=== PATIENT | male | born 1955 | race Caucasian/White ===

== ENCOUNTER 2020-04-17 09:21 | Observation (INO) | payer BC ==
--- NOTE | 2020-04-17 10:20 | EDM.PDOC ---
ED HPI GENERAL MEDICAL PROBLEM - General Chief Complaint: Abdominal Pain Stated Complaint: MEDICAL Time Seen by Provider: 04/17/20 10:19 Source of Information: Reports: Patient History Limitations: Reports: No Limitations - History of Present Illness INITIAL COMMENTS - FREE TEXT/NARRATIVE: pt arrived with a 3 day history of upper abdomanal pain radiating into the chest. He has not vomited. He is having stools. Onset: Gradual, Other ( sick for 3-4 days. ) Duration: Day(s): Location: Reports: Abdomen Associated Symptoms: Reports: Loss of Appetite, Weakness Upper Epigastric Pain Score (Numeric/FACES): 4 - Related Data Allergies Allergy/AdvReac Type Severity Reaction Status Date / Time No Known Allergies Allergy Verified 04/17/20 09:58 Home Meds: Home Meds NK [No Known Home Meds] 04/17/20 [History] Past Medical History - Past Health History Medical/Surgical History: Denies Medical/Surgical History Social & Family History - Tobacco Use Tobacco Use Status *Q: Heavy Tobacco User Years of Tobacco use: 40 Packs/Tins Daily: 1.5 - Caffeine Use Caffeine Use: Reports: Coffee - Recreational Drug Use Recreational Drug Use: No ED ROS GENERAL - Review of Systems Review Of Systems: See Below Constitutional: Reports: Fatigue, Decreased Appetite HEENT: Reports: No Symptoms Respiratory: Reports: No Symptoms Cardiovascular: Reports: No Symptoms Endocrine: Reports: No Symptoms GI/Abdominal: Reports: Abdominal Pain, Decreased Appetite : Reports: No Symptoms Musculoskeletal: Reports: No Symptoms Skin: Reports: No Symptoms ED EXAM, GI/ABD - Physical Exam Exam: See Below Text/Narrative:: pt arrived with rt upper abdomanal pain. He has not felt like eating for several days. He is rating his pain at a 4. Exam Limited By: No Limitations General Appearance: Alert, Moderate Distress Ears: Normal TMs Nose: Normal Inspection Throat/Mouth: Normal Inspection Head: Atraumatic Neck: Normal Inspection Respiratory/Chest: No Respiratory Distress Cardiovascular: Regular Rate, Rhythm GI/Abdominal Exam: Tender, Other (pt is tender with mild guarding in the rt upper abdoman. ) (Male) Exam: Deferred Rectal (Males) Exam: Deferred Back Exam: Normal Inspection Extremities: Normal Inspection Neurological: Alert, Oriented, Normal Cognition Psychiatric: Anxious Course - Vital Signs Last Recorded V/S: Last Vital Signs Temp 36.6 C 04/17/20 09:57 Pulse 90 04/17/20 09:57 Resp 16 04/17/20 09:57 BP 128/70 04/17/20 09:57 Pulse Ox 97 04/17/20 09:57 - Orders/Labs/Meds Orders: Active Orders 24 hr Category Date Time Status Abdomen Ltd [US] Stat Exams 04/17/20 10:17 Taken UA W/MICROSCOPIC [URIN] Urgent Lab 04/17/20 10:11 Ordered HYDROmorphone [Dilaudid] Med 04/17/20 11:31 Once 0.5 mg IVPUSH ONETIME ONE Ondansetron [Zofran] Med 04/17/20 11:31 Once 4 mg IVPUSH ONETIME ONE Sodium Chloride 0.9% [Normal Saline] 1,000 ml Med 04/17/20 11:30 Ordered IV ASDIRECTED Medication Orders Sodium Chloride (Normal Saline) 1,000 mls @ 999 mls/hr IV ASDIRECTED TOSHIA Ondansetron HCl (Ondansetron 4 Mg/2 Ml Sdv) 4 mg IVPUSH ONETIME ONE Stop: 04/17/20 11:32 Labs: Laboratory Tests 04/17/20 04/17/20 04/17/20 Range/Units 10:19 10:19 10:19 WBC 17.8 H (4.5-11.0) K/uL RBC 5.04 (4.30-5.90) M/uL Hgb 15.3 H (12.0-15.0) g/dL Hct 47.4 (40.0-54.0) % MCV 94 (80-98) fL MCH 30 (27-31) pg MCHC 32 (32-36) % Plt Count 214 (150-400) K/uL Neut % (Auto) 78 H (36-66) % Lymph % (Auto) 12 L (24-44) % [place] % (Auto) 10 H (2-6) % Eos % (Auto) 0 L (2-4) % Baso % (Auto) 0 (0-1) % Sodium 139 L (140-148) mmol/L Potassium 4.3 (3.6-5.2) mmol/L Chloride 101 (100-108) mmol/L Carbon Dioxide 31 (21-32) mmol/L Anion Gap 11.3 (5.0-14.0) mmol/L BUN 15 (7-18) mg/dL Creatinine 1.1 (0.8-1.3) mg/dL Est Cr Clr Drug Dosing 76.42 mL/min Estimated GFR (MDRD) > 60 (>60) Glucose 134 H (74-106) mg/dL Calcium 8.8 (8.5-10.1) mg/dL Total Bilirubin 0.5 (0.2-1.0) mg/dL AST 266 H (15-37) U/L ALT 126 H (12-78) U/L Alkaline Phosphatase 62 (46-116) U/L Total Protein 6.5 (6.4-8.2) g/dL Albumin 3.4 (3.4-5.0) g/dL Globulin 3.1 (2.3-3.5) g/dL Albumin/Globulin Ratio 1.1 L (1.2-2.2) Amylase 54 (25-115) U/L Lipase 93 (73-393) U/L Meds: Medications Generic Name Dose Route Start Last Admin Trade Name Freq PRN Reason Stop Dose Admin Sodium Chloride 1,000 mls @ 999 mls/hr 04/17/20 11:30 Normal Saline IV ASDIRECTED TOSHIA Ondansetron HCl 4 mg 04/17/20 11:31 Ondansetron 4 Mg/2 Ml Sdv IVPUSH 04/17/20 11:32 ONETIME ONE - Re-Assessments/Exams Free Text/Narrative Re-Assessment/Exam: 04/17/20 11:03 pt has normal pancreatic enzymes, liver enzymes are elevated. Us limited abdoman shows a large GB with alot of stones, thickend wall possibly some fluid in the wall. Will have Dr Kelly consult on the pt. Departure - Departure Time of Disposition: 11:31 Disposition: Admitted As Inpatient 68 Condition: Fair Clinical Impression: Cholecystitis - Discharge Information Referrals: PCP,None [Primary Care Provider] - Forms: ED Department Discharge Care Plan Goals: admit to Dr Mitchell Sepsis Event Note (ED) - Evaluation Sepsis Screening Result: No Definite Risk - Focused Exam Vital Signs: Vital Signs Temp Pulse Resp BP Pulse Ox 04/17/20 09:57 36.6 C 90 16 128/70 97 04/17/20 09:52 36.6 C 90 16 128/70 97 - My Orders Last 24 Hours: My Active Orders 04/17/20 10:11 UA W/MICROSCOPIC [URIN] Urgent 04/17/20 10:17 Abdomen Ltd [US] Stat 04/17/20 11:30 Sodium Chloride 0.9% [Normal Saline] 1,000 ml IV ASDIRECTED 04/17/20 11:31 HYDROmorphone [Dilaudid] 0.5 mg IVPUSH ONETIME ONE Ondansetron [Zofran] 4 mg IVPUSH ONETIME ONE - Assessment/Plan Last 24 Hours: My Active Orders 04/17/20 10:11 UA W/MICROSCOPIC [URIN] Urgent 04/17/20 10:17 Abdomen Ltd [US] Stat 04/17/20 11:30 Sodium Chloride 0.9% [Normal Saline] 1,000 ml IV ASDIRECTED 04/17/20 11:31 HYDROmorphone [Dilaudid] 0.5 mg IVPUSH ONETIME ONE Ondansetron [Zofran] 4 mg IVPUSH ONETIME ONE
[2020-04-17] MEDS ORDERED: Sodium Chloride 0.9% 1,000 ML IV SCH (11:30)
[2020-04-17] MEDS ORDERED: Ondansetron 4 MG/2 ML SDV IVPUSH ONE (11:31)
[2020-04-17] MEDS ORDERED: HYDROmorphone 0.5 MG/0.5 ML Syringe IVPUSH ONE (11:31)
[2020-04-17] MEDS ORDERED: Sodium Chloride 0.9% 10 ML Syringe FLUSH PRN (12:04)
[2020-04-17] MEDS ORDERED: Acetaminophen 325 MG Tab PO PRN (12:04)
[2020-04-17] MEDS ORDERED: Ondansetron 4 MG/2 ML SDV IV PRN (12:04)
[2020-04-17] MEDS ORDERED: HYDROmorphone 1 MG/ML Syringe IVPUSH PRN (12:10)
[2020-04-17] MEDS ORDERED: HYDROmorphone 0.5 MG/0.5 ML Syringe IVPUSH PRN (12:10)
[2020-04-17] MEDS ORDERED: Lactated Ringers 1,000 ML IV SCH (12:15)
--- NOTE | 2020-04-17 12:18 | PCM.HP.2 ---
H&P History of Present Illness - General Date of Service: 04/17/20 Admit Problem/Dx: Admission Diagnosis/Problem Admission Diagnosis/Problem Cholecystitis Source of Information: Patient History Limitations: Reports: No Limitations - History of Present Illness Symptom Onset Date: 04/15/20 Duration of Symptoms: Reports: Day(s):, Getting Worse Location: Reports: Abdomen Quality: Reports: Sharp Severity: Moderate Improves with: Reports: Medication Worsens with: Reports: Eating Associated Symptoms: Reports: No Other Symptoms Upper Epigastric Pain Score (Numeric/FACES): 4 - Related Data Allergies/Adverse Reactions: Allergies Allergy/AdvReac Type Severity Reaction Status Date / Time No Known Allergies Allergy Verified 04/17/20 09:58 Home Medications: Home Meds NK [No Known Home Meds] 04/17/20 [History] Past Medical History - Past Health History Medical/Surgical History: Denies Medical/Surgical History Social & Family History - Tobacco Use Tobacco Use Status *Q: Heavy Tobacco User Years of Tobacco use: 40 Packs/Tins Daily: 1.5 - Caffeine Use Caffeine Use: Reports: Coffee - Recreational Drug Use Recreational Drug Use: No H&P Review of Systems - Review of Systems: Review Of Systems: See Below General: Reports: Chills, Decreased Appetite HEENT: Reports: No Symptoms Pulmonary: Reports: No Symptoms Cardiovascular: Reports: No Symptoms Gastrointestinal: Reports: Abdominal Pain, Nausea, Vomiting. Denies: Black Stool, Bloody Stool Genitourinary: Reports: No Symptoms Musculoskeletal: Reports: No Symptoms Skin: Reports: No Symptoms Psychiatric: Reports: No Symptoms Neurological: Reports: No Symptoms Hematologic/Lymphatic: Reports: No Symptoms Immunologic: Reports: No Symptoms Exam - Exam Exam: See Below - Vital Signs Vital Signs: Last Vital Signs Temp 97.8 F 04/17/20 09:57 Pulse 64 04/17/20 11:59 Resp 16 04/17/20 11:59 BP 111/65 04/17/20 11:59 Pulse Ox 97 04/17/20 09:57 Weight: 208 lb - Exam General: Alert, Oriented, Cooperative HEENT: Conjunctiva Clear, Hearing Intact Neck: Supple, Trachea Midline Lungs: Clear to Auscultation Cardiovascular: Regular Rate GI/Abdominal Exam: Soft, Tender Extremities: Normal Inspection Neuro Extensive - Mental Status: Alert, Oriented x3, Normal Mood/Affect Psychiatric: Alert, Normal Affect, Normal Mood - Patient Data Lab Results Last 24 hrs: Laboratory Results - last 24 hr 04/17/20 04/17/20 04/17/20 Range/Units 10: 10: 10: WBC 17.8 H (4.5-11.0) K/uL RBC 5.04 (4.30-5.90) M/uL Hgb 15.3 H (12.0-15.0) g/dL Hct 47.4 (40.0-54.0) % MCV 94 (80-98) fL MCH 30 (27-31) pg MCHC 32 (32-36) % Plt Count 214 (150-400) K/uL Neut % (Auto) 78 H (36-66) % Lymph % (Auto) 12 L (24-44) % [place] % (Auto) 10 H (2-6) % Eos % (Auto) 0 L (2-4) % Baso % (Auto) 0 (0-1) % Sodium 139 L (140-148) mmol/L Potassium 4.3 (3.6-5.2) mmol/L Chloride 101 (100-108) mmol/L Carbon Dioxide 31 (21-32) mmol/L Anion Gap 11.3 (5.0-14.0) mmol/L BUN 15 (7-18) mg/dL Creatinine 1.1 (0.8-1.3) mg/dL Est Cr Clr Drug Dosing 76.42 mL/min Estimated GFR (MDRD) > 60 (>60) Glucose 134 H (74-106) mg/dL Calcium 8.8 (8.5-10.1) mg/dL Total Bilirubin 0.5 (0.2-1.0) mg/dL AST 266 H (15-37) U/L ALT 126 H (12-78) U/L Alkaline Phosphatase 62 (46-116) U/L Total Protein 6.5 (6.4-8.2) g/dL Albumin 3.4 (3.4-5.0) g/dL Globulin 3.1 (2.3-3.5) g/dL Albumin/Globulin Ratio 1.1 L (1.2-2.2) Amylase 54 (25-115) U/L Lipase 93 (73-393) U/L Result Diagrams: 04/17/20 10:19 04/17/20 10:19 Sepsis Event Note - Evaluation Sepsis Screening Result: No Definite Risk - Focused Exam Vital Signs: Vital Signs Temp Pulse Resp BP Pulse Ox 04/17/20 11:59 64 16 111/65 04/17/20 09:57 97.8 F 90 16 128/70 97 04/17/20 09:52 97.8 F 90 16 128/70 97 Problem List Initiated/Reviewed/Updated: Yes Orders Last 24hrs: Active Orders 24 hr Category Date Time Status Patient Status [ADT] Routine ADT 04/17/20 12:04 Ordered Bedrest Bathroom Privileges [RC] ASDIRECTED Care 04/17/20 12:04 Ordered Height and Weight [RC] DAILY Care 04/17/20 12:04 Ordered Intake and Output [RC] QSHIFT Care 04/17/20 12:06 Ordered Notify Provider Consults [RC] ASDIRECTED Care 04/17/20 12:08 Ordered Oxygen Therapy [RC] PRN Care 04/17/20 12:04 Ordered Peripheral IV Care [RC] . DIRECTED Care 04/17/20 12:07 Ordered VTE/DVT Education [RC] Per Unit Routine Care 04/17/20 12:04 Ordered Vital Signs [RC] Q4H Care 04/17/20 12:04 Ordered Consult to Physician [CONS] Routine Cons 04/17/20 12:04 Ordered Clear Liquid Diet [DIET] Diet 04/17/20 Dinner Ordered Nothing per Oral After Midnight Diet [DIET] Diet 04/17/20 Dinner Ordered Abdomen Ltd [US] Stat Exams 04/17/20 10:17 Taken BASIC METABOLIC PANEL,BMP [CHEM] AM Lab 04/18/20 05:11 Ordered CBC WITH AUTO DIFF [HEME] AM Lab 04/18/20 05:11 Ordered HEPATIC FUNCTION PANEL,HFP [CHEM] Stat Lab 04/18/20 06:00 Ordered UA W/MICROSCOPIC [URIN] Urgent Lab 04/17/20 12:03 Ordered Acetaminophen [TylenoL] Med 04/17/20 12:04 Ordered 650 mg PO Q4H PRN HYDROmorphone [Dilaudid] Med 04/17/20 12:10 Ordered 0.5 mg IVPUSH Q2H PRN HYDROmorphone [Dilaudid] Med 04/17/20 12:10 Ordered 1 mg IVPUSH Q2H PRN Lactated Ringers [Ringers, Lactated] 1,000 ml Med 04/17/20 12:15 Ordered IV ASDIRECTED Ondansetron [Zofran] Med 04/17/20 12:04 Ordered 4 mg IV Q4H PRN Sodium Chloride 0.9% [Normal Saline] 1,000 ml Med 04/17/20 11:30 Active IV ASDIRECTED Sodium Chloride 0.9% [Saline Flush] Med 04/17/20 12:04 Ordered 10 ml FLUSH ASDIRECTED PRN cefTRIAXone [Rocephin] 1 gm Med 04/17/20 13:00 Ordered Sodium Chloride 0.9% [Normal Saline] 50 ml IV Q24H Peripheral IV Insertion Adult [OM.PC] Routine Oth 04/17/20 12:04 Ordered Sequential Compression Device [OM.PC] Per Unit Routine Oth 04/17/20 12:06 Ordered Resuscitation Status Routine Resus Stat 04/17/20 12:04 Ordered Medication Orders Acetaminophen (Acetaminophen 325 Mg Tab) 650 mg PO Q4H PRN PRN Reason: Pain (Mild 1-3)/fever Hydromorphone HCl (Hydromorphone 0.5 Mg/0.5 Ml Syringe) 0.5 mg IVPUSH Q2H PRN PRN Reason: Pain (moderate 4-6) Hydromorphone HCl (Hydromorphone 1 Mg/Ml Syringe) 1 mg IVPUSH Q2H PRN PRN Reason: Pain (severe 7-10) Sodium Chloride (Normal Saline) 1,000 mls @ 999 mls/hr IV ASDIRECTED [facility] Lactated Ringer's (Ringers, Lactated) 1,000 mls @ 75 mls/hr IV ASDIRECTED TOSHIA Ceftriaxone Sodium 1 gm/ (Sodium Chloride) 50 mls @ 100 mls/hr IV Q24H [facility] Ondansetron HCl (Ondansetron 4 Mg/2 Ml Sdv) 4 mg IV Q4H PRN PRN Reason: Nausea/Vomiting Sodium Chloride (Sodium Chloride 0.9% 10 Ml Syringe) 10 ml FLUSH ASDIRECTED PRN PRN Reason: Keep Vein Open Assessment/Plan Comment:: ACUTE CHOLECYSTITIS Case discussed with Dr. Kelly in the emergency department. He request hospitalist admission with tentative plan for surgery in a.m. We will focus on pain control and IV hydration today. Patient requests sips and ice chips as tolerated. We will allow this until midnight when the patient will be made NPO. -----Requested a dose of Rocephin and will continue daily until surgery. NICOTINE DEPENDENCE Patient smokes 2 packs/day. Requested nicotine patch with nicotine gum as needed for cravings DVT PROPHYLAXIS Requested SCDs with planned surgery tomorrow DISPOSITION Patient admitted under observation. Projected hospitalization is 1 to 2 days with target disposition home.
[2020-04-17] MEDS ORDERED: cefTRIAXone 1 GM in Sodium Chloride 0.9% 50 ML IV SCH ×2 (13:00)
--- NOTE | 2020-04-17 13:11 | US ---
Abdomen Ltd CLINICAL HISTORY: Abdominal pain COMPARISON: None. TECHNIQUE: Real-time images were obtained through the right upper quadrant. FINDINGS: The liver is free of mass or biliary dilatation. There is some increased hepatic echogenicity. There is some fatty sparing in the gallbladder fossa The gallbladder contains echoes with dense shadowing. Gallbladder wall measures 4 mm. There is a positive Downing sign. The common bile duct measures 5 mm. The pancreas is partially obscured. No mass is seen The right kidney has a normal appearance. The IVC is normal. IMPRESSION: Cholelithiasis with gallbladder wall thickening and a positive Downing's sign consistent with cholelithiasis with cholecystitis Fatty infiltration of the liver
[2020-04-17 13:37] LABS: CORONAVIRUS COVID-19 NAA NEGATIVE (NEGATIVE)
[2020-04-17] MEDS ORDERED: Nicotine Polacrilex 2 MG Gum CHEW PRN (14:05)
[2020-04-17] MEDS ORDERED: HYDROmorphone 1 MG/ML Syringe IV PRN (14:23)
[2020-04-17] MEDS ORDERED: Dextrose 5%-Lactated Ringers 1,000 ML IV SCH (14:30)
[2020-04-17] MEDS ORDERED: Pantoprazole 40 MG Vial IV SCH (15:00)
[2020-04-17] MEDS: Nicotine 21 MG/24 Hr Patch TRDERM SCH (16:14)
[2020-04-17] MEDS: Ampicillin/Sulbactam Na 3 GM in Sodium Chloride 0.9% 100 ML IV SCH ×2 (16:19→22:39)
[2020-04-18] MEDS: Ampicillin/Sulbactam Na 3 GM in Sodium Chloride 0.9% 100 ML IV SCH ×2 (04:03→11:26)
[2020-04-18] MEDS ORDERED: Lidocaine 1% with EPINEPHrine 1:100,000 50 ML MDV ONE (06:53)
[2020-04-18] MEDS ORDERED: Bupivacaine 0.5% 50 ML MDV ONE (06:53)
[2020-04-18] MEDS ORDERED: fentaNYL 250 MCG/5 ML SDV ONE (07:56)
[2020-04-18] MEDS ORDERED: Propofol 200 MG/20 ML SDV ONE (07:57)
[2020-04-18] MEDS ORDERED: Rocuronium 50 MG/5 ML Vial ONE (07:57)
[2020-04-18] MEDS ORDERED: Dexamethasone 4 MG/ML SDV ONE (07:57)
[2020-04-18] MEDS ORDERED: Neostigmine Methylsulfate 1 MG/ML 5 ML Syringe ONE (07:57)
[2020-04-18] MEDS ORDERED: Glycopyrrolate 0.2 MG/ML 5 ML MDV ONE (07:57)
[2020-04-18] MEDS ORDERED: Ondansetron 4 MG/2 ML SDV ONE (07:57)
[2020-04-18] MEDS ORDERED: Succinylcholine 200 MG/10 ML MDV ONE (07:57)
[2020-04-18] MEDS ORDERED: Ketamine 500 MG/5 ML MDV IV SCH (08:30)
[2020-04-18] MEDS ORDERED: Ketamine 50 MG in Sodium Chloride 0.9% 49.5 ML IV SCH (08:30)
[2020-04-18] MEDS: Nicotine 21 MG/24 Hr Patch TRDERM SCH (09:44)
--- NOTE | 2020-04-18 10:26 | PN ---
DATE OF SERVICE: 04/18/2020 SUBJECTIVE: Jimmy is n.p.o. He will be having a laparoscopic cholecystectomy case to follow today. He has had no pain until earlier this morning and then developed some right upper quadrant pain associated with nausea. REVIEW OF SYSTEMS: Remainder of review of systems negative for any pertinent positives and negatives. OBJECTIVE: GENERAL: Jimmy Yo is a pleasant 64-year-old male. He is alert and orientated. VITAL SIGNS: TPR is 96.4, 44, 18, blood pressure 106/44. HEENT: Negative. NECK: Supple. HEART: Regular rate and rhythm. LUNGS: Clear. ABDOMEN: Slightly distended. There is tenderness in the right upper quadrant. EXTREMITIES: Without peripheral edema. NEUROLOGIC: Intact. PSYCHIATRIC: Mood and affect appropriate. ASSESSMENT: Cholecystitis. PLAN: After preoperative evaluation and discussion of possible risks and possible complications, the patient wishes to proceed with surgical procedure. Orders will be written postoperatively. Kat Spicer PA-C /[id number]
[2020-04-18] MEDS ORDERED: Heparin Sodium 5,000 Units/ML Vial IVPUSH ONE (10:29)
[2020-04-18] MEDS ORDERED: Heparin Sodium/D5W 25,000 UNITS/500 ML BAG IV SCH (10:30)
[2020-04-18] MEDS ORDERED: Aspirin 81 MG Tab.Chew PO ONE (10:45)
[2020-04-18] MEDS ORDERED: Clopidogrel 75 MG Tab PO ONE (11:10)
--- NOTE | 2020-04-18 11:12 | PCM.DCSUM1 ---
Discharge Summary - Hospital Course Brief History: 64-year-old male with history of tobacco dependence who presented with 3 days of epigastric abdominal pain. He was admitted for management of acute cholecystitis with cholelithiasis. Diagnosis: Stroke: No - Discharge Data Discharge Date: 04/18/20 Discharge Disposition: DC/Tfer to Acute Hospital 02 Condition: Stable - Referral to Home Health Primary Care Physician: PCP None - Discharge Diagnosis/Problem(s) (1) NSTEMI (non-ST elevated myocardial infarction) SNOMED Code(s): 17577827 ICD Code: I21.4 - NON-ST ELEVATION (NSTEMI) MYOCARDIAL INFARCTION Status: Acute Current Visit: Yes (2) Complete heart block SNOMED Code(s): 76531850 ICD Code: I44.2 - ATRIOVENTRICULAR BLOCK, COMPLETE Status: Acute Current Visit: Yes (3) Acute cholecystitis due to biliary calculus SNOMED Code(s): 93837710384250 ICD Code: K80.00 - CALCULUS OF GALLBLADDER W ACUTE CHOLECYST W/O OBSTRUCTION Status: Acute Current Visit: Yes (4) Tobacco dependence SNOMED Code(s): 35345766 ICD Code: F17.200 - NICOTINE DEPENDENCE, UNSPECIFIED, UNCOMPLICATED Status: Chronic Current Visit: Yes - Patient Summary/Data Consults: Consultations 04/17/20 12:04 Consult to Physician [CONS] Routine Consulting Provider: Rui Kelly Call Completed to Consulting Physician: Yes Date Notified: 04/17/20 Hospital Course: Capo presented to the emergency room with 3 days of epigastric abdominal pain that radiated to his chest. Laboratory work-up in the emergency room revealed mild elevation of AST and ALT. He also had leukocytosis with a white blood cell count of 17,000. A right upper quadrant ultrasound revealed thickening of the gallbladder wall as well as cholelithiasis concerning for acute cholecystitis with gallstones. He was started on Unasyn and aztreonam. The surgical team was consulted and he was admitted to the hospital with the plan for surgical intervention the next morning. Overnight there were no issues. He has been pain-free. This morning he went down to the operating room and prior to receiving any anesthesia his heart rate suddenly dropped to the mid 30s. This appeared to be complete heart block on the monitor. An EKG was obtained and did confirm complete heart block. I checked a troponin level off of his morning blood and this was elevated at 28. The patient received 324 mg of aspirin as well as a 4000 unit heparin bolus and heparin infusion was started. There was concern for non-ST elevation myocardial infarction. I talked to the cardiology team at [facility] in [place]. The risk concerned that this should be treated as a STEMI. 600 mg of clopidogrel was also requested. The plan is for the patient to be transferred emergently to [facility] in [place] with a direct admission to the [facility]. He is stable for transfer at this time and the risks far outweigh the benefits. - Patient Instructions Diet: NPO Activity: Bedrest Other/Special Instructions: transfer to [facility]. Dx: NSTEMI, acute cholecystitis. Discussed with Dr Thomas - cardiology - Discharge Plan *PRESCRIPTION DRUG MONITORING PROGRAM REVIEWED*: Not Applicable *COPY OF PRESCRIPTION DRUG MONITORING REPORT IN PATIENT DALY: Not Applicable Home Medications: Home Meds NK [No Known Home Meds] 04/17/20 [History] Referrals: PCP,None [Primary Care Provider] - - Discharge Summary/Plan Comment DC Time >30 min.: Yes (60-transfer to acute hospital ) - Patient Data Vitals - Most Recent: Last Vital Signs Temp 36.8 C 04/18/20 10:10 Pulse 35 L 04/18/20 10:10 Resp 18 04/18/20 10:10 BP 104/49 L 04/18/20 10:10 Pulse Ox 93 L 04/18/20 10:10 Weight - Most Recent: 94.347 kg I&O - Last 24 hours: Intake & Output 04/17/20 04/18/20 04/18/20 22:59 06:59 14:59 Intake Total 1083 957 Balance 1083 957 Lab Results - Last 24 hrs: Laboratory Results - last 24 hr 04/17/20 04/17/20 04/18/20 Range/Units 12:03 12:48 03:57 WBC (4.5-11.0) K/uL RBC (4.30-5.90) M/uL Hgb (12.0-15.0) g/dL Hct (40.0-54.0) % MCV (80-98) fL MCH (27-31) pg MCHC (32-36) % Plt Count (150-400) K/uL Neut % (Auto) (36-66) % Lymph % (Auto) (24-44) % Catron % (Auto) (2-6) % Eos % (Auto) (2-4) % Baso % (Auto) (0-1) % Sodium (140-148) mmol/L Potassium (3.6-5.2) mmol/L Chloride (100-108) mmol/L Carbon Dioxide (21-32) mmol/L Anion Gap (5.0-14.0) mmol/L BUN (7-18) mg/dL Creatinine (0.8-1.3) mg/dL Est Cr Clr Drug Dosing mL/min Estimated GFR (MDRD) (>60) Glucose (74-106) mg/dL Calcium (8.5-10.1) mg/dL Total Bilirubin 0.7 (0.2-1.0) mg/dL Direct Bilirubin 0.32 H (0.0-0.2) mg/dL Indirect Bilirubin 0.38 AST 205 H (15-37) U/L ALT 147 H (12-78) U/L Alkaline Phosphatase 66 (46-116) U/L Troponin I (0.000-0.056) ng/mL Total Protein 5.6 L (6.4-8.2) g/dL Albumin 2.8 L (3.4-5.0) g/dL Globulin 2.8 (2.3-3.5) g/dL Albumin/Globulin Ratio 1.0 L (1.2-2.2) Urine Color Yellow (YELLOW) Urine Appearance Slightly cloudy A (CLEAR) Urine pH 6.0 (5.0-8.0) Ur Specific Tyler 1.025 (1.008-1.030) Urine Protein 100 H (NEGATIVE) mg/dL Urine Glucose (UA) Negative (NEGATIVE) mg/dL Urine Ketones Trace H (NEGATIVE) mg/dL Urine Occult Blood Negative (NEGATIVE) Urine Nitrite Negative (NEGATIVE) Urine Bilirubin Negative (NEGATIVE) Urine Urobilinogen 0.2 (0.2-1.0) EU/dL Ur Leukocyte Esterase Negative (NEGATIVE) Urine RBC 0-5 (0-5) Urine WBC 0-5 (0-5) Ur Epithelial Cells Not seen Amorphous Sediment Moderate Urine Bacteria Rare Urine Mucus Moderate Urine Other See note Influenza Type A RNA Negative (NEGATIVE) RSV RNA (INAAT) Negative (NEGATIVE) Influenza Type B RNA Negative (NEGATIVE) SARS-CoV-2 RNA (GALOL) Negative (NEGATIVE) 04/18/20 04/18/20 04/18/20 Range/Units 03:57 03:57 09:44 WBC 16.0 H (4.5-11.0) K/uL RBC 4.97 (4.30-5.90) M/uL Hgb 15.3 H (12.0-15.0) g/dL Hct 47.7 (40.0-54.0) % MCV 96 (80-98) fL MCH 31 (27-31) pg MCHC 32 (32-36) % Plt Count 204 (150-400) K/uL Neut % (Auto) 68 H (36-66) % Lymph % (Auto) 19 L (24-44) % Catron % (Auto) 14 H (2-6) % Eos % (Auto) 0 L (2-4) % Baso % (Auto) 0 (0-1) % Sodium 140 (140-148) mmol/L Potassium 5.3 H (3.6-5.2) mmol/L Chloride 104 (100-108) mmol/L Carbon Dioxide 28 (21-32) mmol/L Anion Gap 13.3 (5.0-14.0) mmol/L BUN 18 (7-18) mg/dL Creatinine 1.3 (0.8-1.3) mg/dL Est Cr Clr Drug Dosing 64.67 mL/min Estimated GFR (MDRD) 56 L (>60) Glucose 144 H (74-106) mg/dL Calcium 8.4 L (8.5-10.1) mg/dL Total Bilirubin (0.2-1.0) mg/dL Direct Bilirubin (0.0-0.2) mg/dL Indirect Bilirubin AST (15-37) U/L ALT (12-78) U/L Alkaline Phosphatase (46-116) U/L Troponin I 28.689 H* (0.000-0.056) ng/mL Total Protein (6.4-8.2) g/dL Albumin (3.4-5.0) g/dL Globulin (2.3-3.5) g/dL Albumin/Globulin Ratio (1.2-2.2) Urine Color (YELLOW) Urine Appearance (CLEAR) Urine pH (5.0-8.0) Ur Specific Tyler (1.008-1.030) Urine Protein (NEGATIVE) mg/dL Urine Glucose (UA) (NEGATIVE) mg/dL Urine Ketones (NEGATIVE) mg/dL Urine Occult Blood (NEGATIVE) Urine Nitrite (NEGATIVE) Urine Bilirubin (NEGATIVE) Urine Urobilinogen (0.2-1.0) EU/dL Ur Leukocyte Esterase (NEGATIVE) Urine RBC (0-5) Urine WBC (0-5) Ur Epithelial Cells Amorphous Sediment Urine Bacteria Urine Mucus Urine Other Influenza Type A RNA (NEGATIVE) RSV RNA (INAAT) (NEGATIVE) Influenza Type B RNA (NEGATIVE) SARS-CoV-2 RNA (GALLO) (NEGATIVE) Med Orders - Current: Current Medications Acetaminophen (Acetaminophen 325 Mg Tab) 650 mg PO Q4H PRN PRN Reason: Pain (Mild 1-3)/fever Hydromorphone HCl (Hydromorphone 1 Mg/Ml Syringe) 1 mg IV Q4H PRN PRN Reason: PAIN Last Admin: 04/18/20 04:52 Dose: 1 mg Documented by: Dextrose/Lactated Ringer's (Dextrose 5%-Lactated Ringers) 1,000 mls @ 100 mls/hr IV ASDIRECTED [facility] Last Admin: 04/18/20 01:49 Dose: 100 mls/hr Documented by: Ampicillin Sodium/Sulbactam (Sodium 3 gm/ Sodium Chloride) 100 mls @ 200 mls/hr IV Q6H [facility] Last Admin: 04/18/20 04:03 Dose: 200 mls/hr Documented by: Aztreonam 1 gm/ Sodium (Chloride) 50 mls @ 100 mls/hr IV Q8H [facility] Last Admin: 04/18/20 10:59 Dose: 100 mls/hr Documented by: Heparin Sodium/Dextrose (Heparin 25,000 Units In D5w 500 Ml) 25,000 units in 500 mls @ 22.643 mls/hr IV TITRATE [facility]; Protocol Last Admin: 04/18/20 10:58 Dose: 12 units/kg/hr, 22.643 mls/hr Documented by: Nicotine (Nicotine 21 Mg/24 Hr Patch) 21 mg TRDERM DAILY [facility] Last Admin: 04/18/20 09:44 Dose: 21 mg Documented by: Nicotine Polacrilex (Nicotine Polacrilex 2 Mg Gum) 4 mg CHEW Q1H PRN PRN Reason: Withdrawal Symptoms Ondansetron HCl (Ondansetron 4 Mg/2 Ml Sdv) 4 mg IV Q4H PRN PRN Reason: Nausea/Vomiting Last Admin: 04/18/20 04:51 Dose: 4 mg Documented by: Pantoprazole Sodium (Pantoprazole 40 Mg Vial) 40 mg IV Q24H [facility] Last Admin: 04/17/20 16:14 Dose: 40 mg Documented by: Sodium Chloride (Sodium Chloride 0.9% 10 Ml Syringe) 10 ml FLUSH ASDIRECTED PRN PRN Reason: Keep Vein Open Discontinued Medications Aspirin (Aspirin 81 Mg Tab.Chew) 324 mg PO ONETIME ONE Stop: 04/18/20 10:46 Last Admin: 04/18/20 10:39 Dose: 324 mg Documented by: Bupivacaine HCl (Bupivacaine 0.5% 50 Ml Mdv) Confirm Administered Dose 50 ml .ROUTE .STK-MED ONE Stop: 04/18/20 06:54 Dexamethasone (Dexamethasone 4 Mg/Ml Sdv) Confirm Administered Dose 4 mg .ROUTE .STK-MED ONE Stop: 04/18/20 07:58 Fentanyl (Fentanyl 250 Mcg/5 Ml Sdv) Confirm Administered Dose 250 mcg .ROUTE .STK-MED ONE Stop: 04/18/20 07:57 Glycopyrrolate (Glycopyrrolate 0.2 Mg/Ml 5 Ml Mdv) Confirm Administered Dose 1 mg .ROUTE .STK-MED ONE Stop: 04/18/20 07:58 Heparin Sodium (Porcine) (Heparin Sodium 5,000 Units/Ml Vial) 4,000 units IVPUSH .BOLUS ONE Stop: 04/18/20 10:30 Last Admin: 04/18/20 10:40 Dose: 4,000 units Documented by: Hydromorphone HCl (Hydromorphone 0.5 Mg/0.5 Ml Syringe) 0.5 mg IVPUSH ONETIME ONE Stop: 04/17/20 11:32 Last Admin: 04/17/20 11:53 Dose: 0.5 mg Documented by: Hydromorphone HCl (Hydromorphone 0.5 Mg/0.5 Ml Syringe) 0.5 mg IVPUSH Q2H PRN PRN Reason: Pain (moderate 4-6) Last Admin: 04/17/20 13:19 Dose: 0.5 mg Documented by: Hydromorphone HCl (Hydromorphone 1 Mg/Ml Syringe) 1 mg IVPUSH Q2H PRN PRN Reason: Pain (severe 7-10) Sodium Chloride (Normal Saline) 1,000 mls @ 999 mls/hr IV ASDIRECTED [facility] Stop: 04/17/20 13:15 Last Admin: 04/17/20 12:13 Dose: 999 mls/hr Documented by: Lactated Ringer's (Ringers, Lactated) 1,000 mls @ 75 mls/hr IV ASDIRECTED [facility] Ceftriaxone Sodium 1 gm/ (Sodium Chloride) 50 mls @ 100 mls/hr IV Q24H [facility] Stop: 04/17/20 18:00 Last Admin: 04/17/20 12:42 Dose: 100 mls/hr Documented by: Ceftriaxone Sodium 1 gm/ (Sodium Chloride) 50 mls @ 100 mls/hr IV Q24H [facility] Lidocaine/Epinephrine (Lidocaine 1% With Epinephrine 1:100,000 50 Ml Mdv) Confirm Administered Dose 50 ml .ROUTE .STK-MED ONE Stop: 04/18/20 06:54 Neostigmine Methylsulfate (Neostigmine Methylsulfate 1 Mg/Ml 5 Ml Syringe) Confirm Administered Dose 5 mg .ROUTE .STK-MED ONE Stop: 04/18/20 07:58 Ondansetron HCl (Ondansetron 4 Mg/2 Ml Sdv) 4 mg IVPUSH ONETIME ONE Stop: 04/17/20 11:32 Last Admin: 04/17/20 11:49 Dose: 4 mg Documented by: Ondansetron HCl (Ondansetron 4 Mg/2 Ml Sdv) Confirm Administered Dose 4 mg . ROUTE .STK-MED ONE Stop: 04/18/20 07:58 Propofol (Propofol 200 Mg/20 Ml Sdv) Confirm Administered Dose 200 mg .ROUTE .STK-MED ONE Stop: 04/18/20 07:58 Rocuronium [place] (Rocuronium 50 Mg/5 Ml Vial) Confirm Administered Dose 50 mg .ROUTE .STK-MED ONE Stop: 04/18/20 07:58 Succinylcholine Chloride (Succinylcholine 200 Mg/10 Ml Mdv) Confirm Administered Dose 200 mg .ROUTE .STK-MED ONE Stop: 04/18/20 07:58
[2020-04-18] MEDS ORDERED: cefTRIAXone 1 GM in Sodium Chloride 0.9% 50 ML IV SCH (13:00)
== END 2020-04-18 11:37 ==
LOC: JP.ED 09:21 → JP.MS 12:04
PROVIDERS: ADMIT Hospitalist; ATTEND Internal Medicine
DX: K80.00 Calculus of gallbladder with acute cholecystitis without obstruction (principal); I21.4 Non-ST elevation (NSTEMI) myocardial infarction; I44.2 Atrioventricular block, complete; D72.829 Elevated white blood cell count, unspecified; R74.01 Elevation of levels of liver transaminase levels; K82.8 Other specified diseases of gallbladder; F17.210 Nicotine dependence, cigarettes, uncomplicated; Z01.812 Encounter for preprocedural laboratory examination; Z20.822 Contact with and (suspected) exposure to COVID-19; Z53.09 Procedure and treatment not carried out because of other contraindication
CPT/HCPCS: 0241U; 36415; 76705; 80048; 80053; 80076; 81001; 82150; 83690; 84484; 85025; 93005; A9270; C9113; J0295; J0696; J1170; J1644; J2405; J3490; J7030; J7121; J0330; J1100; J2704; J2710; J3010